=== PATIENT | female | born 1980 | race Caucasian/White ===

== ENCOUNTER 2021-02-28 06:51 | Emergency (ER) | payer MEDICAID ==
--- NOTE | 2021-02-28 07:41 | EDM.PDOC ---
ED HPI GENERAL MEDICAL PROBLEM - General Chief Complaint: Back Pain or Injury Stated Complaint: BACK PAIN Time Seen by Provider: 02/28/21 07:26 Source of Information: Reports: Patient History Limitations: Reports: No Limitations - History of Present Illness INITIAL COMMENTS - FREE TEXT/NARRATIVE: The patient presents with right low lydia pain. This started about 7 days ago. She denies hurting it such as falling, lifting or twisting. She says the pain will go into her buttocks down her leg. She has no numbness but has some weakness into her leg. She has no other symptoms such as dysuria, fever, chills, cough, chest pain, shortness of breath or abdominal pain. Onset: Gradual Duration: Week(s): (7) Location: Reports: Back Quality: Reports: Sharp Severity: Moderate Improves with: Reports: Immobilization Worsens with: Reports: Movement Context: Denies: Trauma Associated Symptoms: Reports: No Other Symptoms Right Lower Back Pain Score (Numeric/FACES): 9 - Related Data Allergies Allergy/AdvReac Type Severity Reaction Status Date / Time naproxen [From Aleve] Allergy Severe Swelling Verified 02/28/21 07:21 Home Meds: Home Meds Cyclobenzaprine [Flexeril] 10 mg PO TID PRN #20 tab 02/28/21 [Rx] ED ROS GENERAL - Review of Systems Review Of Systems: See Below Constitutional: Reports: No Symptoms HEENT: Reports: No Symptoms Respiratory: Reports: No Symptoms Cardiovascular: Reports: No Symptoms Endocrine: Reports: No Symptoms GI/Abdominal: Reports: No Symptoms : Reports: No Symptoms Musculoskeletal: Reports: Back Pain ED EXAM,LOWER BACK PAIN/INJURY - Physical Exam Exam: See Below Exam Limited By: No Limitations General Appearance: Alert, No Apparent Distress Ears: Normal External Exam Nose: Normal Inspection Head: Atraumatic, Normocephalic Neck: Normal Inspection Respiratory/Chest: No Respiratory Distress, Lungs Clear, Normal Breath Sounds Cardiovascular: Regular Rate, Rhythm, No Edema, No Murmur GI/Abdominal: Soft, Non-Tender, No Organomegaly, No Mass Back Exam: Other (Pain upon palpation to the right lower back) Neurological: Alert, No Motor/Sensory Deficits, Oriented x 3, Other (Equal strength and normal reflexes) Course - Vital Signs Last Recorded V/S: Last Vital Signs Temp 97.9 F 02/28/21 07:15 Pulse 62 02/28/21 07:15 Resp 18 02/28/21 07:15 BP 109/72 02/28/21 07:15 Pulse Ox 98 02/28/21 07:15 - Orders/Labs/Meds Orders: Active Orders 24 hr Category Date Time Status Lumbar Spine 2 or 3V [CR] Stat Exams 02/28/21 07:33 Taken Labs: Laboratory Tests 02/28/21 Range/Units 07:30 Urine Color Yellow (Yellow) Urine Appearance Clear (Clear) Urine pH 5.5 (5.0-8.0) Ur Specific [place] > or = 1.030 (1.005-1.030) Urine Protein Negative (Negative) Urine Glucose (UA) Negative (Negative) Urine Ketones Negative (Negative) Urine Occult Blood 1+ H (Negative) Urine Nitrite Negative (Negative) Urine Bilirubin Negative (Negative) Urine Urobilinogen 0.2 (0.2-1.0) Ur Leukocyte Esterase Negative (Negative) Urine RBC 5-10 H (0-5) /hpf Urine WBC 0-5 (0-5) /hpf Ur Squamous Epith Cells 0-5 (0-5) /hpf Urine Bacteria Moderate H (FEW) /hpf Urine Mucus Many H (FEW) /hpf - Re-Assessments/Exams Free Text/Narrative Re-Assessment/Exam: 02/28/21 07:42 I ordered a UA and x-ray of her back. 02/28/21 08:15 Her UA looks good. Her x-ray shows nothing acute. I will get her on some muscle relaxers and follow up with PT. Departure - Departure Time of Disposition: 08:20 Disposition: Home, Self-Care 01 Condition: Good Clinical Impression: Low back pain Qualifiers: Chronicity: acute Back pain laterality: right Sciatica presence: with sciatica Sciatica laterality: sciatica of right side Qualified Code(s): M54.41 - Lumbago with sciatica, right side - Discharge Information *PRESCRIPTION DRUG MONITORING PROGRAM REVIEWED*: Not Applicable *COPY OF PRESCRIPTION DRUG MONITORING REPORT IN PATIENT SEVEN: Not Applicable Prescriptions: Cyclobenzaprine [Flexeril] 10 mg PO TID PRN #20 tab PRN Reason: Pain Referrals: PCP,None [Primary Care Provider] - Ekaterina Valentine, [employer] DIRECTOR [Nurse Practitioner] - 1 Week Forms: ED Department Discharge Additional Instructions: Take motrin or aleve for pain. You may also use the flexeril every 8 hours. Keep moving and do some light stretching. Follow up with Ekaterina Valentine and physical therapy. Please return if you are worse. Sepsis Event Note (ED) - Evaluation Sepsis Screening Result: No Definite Risk - Focused Exam Vital Signs: Vital Signs Temp Pulse Resp BP Pulse Ox 02/28/21 07:15 97.9 F 62 18 109/72 98 - My Orders Last 24 Hours: My Active Orders 02/28/21 07:33 Lumbar Spine 2 or 3V [CR] Stat - Assessment/Plan Last 24 Hours: My Active Orders 02/28/21 07:33 Lumbar Spine 2 or 3V [CR] Stat
--- NOTE | 2021-02-28 08:17 | CR ---
Lumbar spine: AP and lateral views of the lumbar spine were obtained. Comparison: No prior lumbar spine imaging is available. Mild disc space narrowing is noted at L1-2 and L3-4. Mild posterior osteophytes are noted at both of these levels. Mild posterior disc space narrowing is noted at L2-3. Scattered anterior osteophytes are noted. Minimal scoliosis is noted. Pedicles are intact. Visualized transverse and spinous processes are intact. Sacroiliac joints are within normal limits. Impression: 1. Mild degenerative change as noted above. Minimal scoliosis. 2. Nothing acute is appreciated. Diagnostic code #2
== END 2021-02-28 08:25 | disposition home or self-care (01) ==
LOC: JD.ED 06:51
DX: M54.41 Lumbago with sciatica, right side (principal); Z88.5 Allergy status to narcotic agent
CPT/HCPCS: 72100; 72100-26; 81001; 99283; 99284-25